=== PATIENT | male | born 2000 | race Caucasian/White ===

== ENCOUNTER 2023-05-08 11:32 | Emergency (ER) | payer OTHER, SELFPAY ==
[2023-05-08 11:35] VITALS: BP 133/94; PULSE 71; RESP 20; TEMP 36.6; O2SAT 97; BMI 29.0
--- NOTE | 2023-05-08 11:40 | XR_ITS ---
PROCEDURE INFORMATION: Exam: XR Right Wrist Exam date and time: 05/08/2023 12:02 PM Age: 23 years old Clinical indication: Pain; Wrist; Right TECHNIQUE: Imaging protocol: Radiologic exam of the right wrist. Views: 3 or more views. COMPARISON: No relevant prior studies available. FINDINGS: Bones/joints: Normal. Soft tissues: Normal. IMPRESSION: No acute findings.
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
[2023-05-08 12:35] VITALS: BP 133/94; PULSE 71; RESP 20; TEMP 36.6; O2SAT 97
== END 2023-05-08 12:39 | disposition home or self-care (01) ==
PROVIDERS: Emergency Provider Nurse Practitioner Family
DX: S63.501A Unspecified sprain of right wrist, initial encounter (principal); J45.909 Unspecified asthma, uncomplicated; F41.9 Anxiety disorder, unspecified; F32.A Depression, unspecified; W50.2XXA Accidental twist by another person, initial encounter
CPT/HCPCS: 73110; 99204; 99212; G0463

== ENCOUNTER 2024-09-05 13:00 | Outpatient (RCR) | payer OTHER, SELFPAY | END 2024-09-19 08:52 | disposition home or self-care (01) | LOC: PT 13:00 | PROVIDERS: Visit Provider Nurse Practitioner Family | DX: M25.512 Pain in left shoulder (principal) | CPT/HCPCS: 97110; 97140; 97163; 97530 ==

== ENCOUNTER 2024-11-20 14:57 | Outpatient (RCR) | payer OTHER, SELFPAY | END 2024-11-20 23:59 | disposition home or self-care (01) | LOC: PT 14:57 | PROVIDERS: Visit Provider Orthopaedic Surgery Adult Reconstructive Orthopaedic Surgery | DX: M65.4 Radial styloid tenosynovitis [de Quervain] (principal); M18.12 Unilateral primary osteoarthritis of first carpometacarpal joint, left hand | CPT/HCPCS: 97163 ==